=== PATIENT | male | born 1960 | race Caucasian/White ===

== ENCOUNTER 2024-12-07 21:44 | Emergency (ER) | payer OTHER ==
--- NOTE | 2024-12-07 22:38 | ER ---
Nurse's Notes [facility] Name: Aram Mcintosh Age: 64 yrs Sex: Male : 1960 Arrival Date: 12/07/2024 Time: 21:44 Bed Waiting Private MD: Diagnosis: Assessment: 12/07 22:27 Reassessment: Patient called to triage. No answer. Registration states patient left ER. cp4 22:30 Reassessment: Patient called to triage again. No answer. cp4 ED Course: 22:12 Patient arrived in ED. gm2 22:13 Bettye Be FNP-C is [facility] uzair 22:13 Max Sifuentes MD is Attending Physician. kb Administered Medications: No medications were administered Outcome: 22:38 Patient left the ED. cp4 Signatures: Bettye Be FNP-C FNP-Ckb Potter, Christina cp4 Lore Monroy gm2 Corrections: (The following items were deleted from the chart) 23:58 22:16 Reassessment: Patient called to triage no answer. Registrations states patient cp4 left. cp4
== END 2024-12-07 22:38 | disposition left against medical advice (07) ==
LOC: ER 21:44
DX: Z02.9 Encounter for administrative examinations, unspecified (principal)

== ENCOUNTER 2024-12-08 12:36 | Emergency (ER) | payer OTHER ==
[2024-12-08 13:27] LABS: Absolute Lymphocytes (CBC) 1.6 K/uL (0.7-4.9); Hematocrit 41.1 % (39.6-49.0); Hemoglobin 13.6 g/dL (13.6-17.9); MCH 32.2 pg (27.0-35.0); MCHC 33.1 g/dL (32.0-36.0); MCV 97.2 fL (80-100); MPV 9.1 fL (7.6-11.3); Nucleated RBC Absolute Count 0.0 (0-0); Nucleated Red Blood Cells % 0.0 % (0-0); RBC Red Blood Cell Count 4.23 M/uL (4.33-5.43); White Blood Count 7.70 thou/uL (4.3-10.9)
[2024-12-08 13:32] LABS: PT Prothrombin Time 14.5 SECONDS (10-13.0); Protime INR 1.29
[2024-12-08 13:44] LABS: ALT/SGPT 23 U/L (16-61); AST/SGOT 22 U/L (15-37); Albumin 3.2 g/dL (3.4-5.0); Albumin/Globulin Ratio 0.9 (1.1-1.8); Alkaline Phosphatase 51 U/L (45-117); Anion Gap 8.0 mEq/L (5.0-15.0); BUN Blood Urea Nitrogen 13 mg/dL (7-18); Globulin 3.6 g/dL (2.3-3.5); Glucose Level 115 mg/dL (74-106); Magnesium 2.0 mg/dL (1.6-2.4); NT PRO-BNP 32 pg/mL (<125); Potassium 4.0 mEq/L (3.5-5.1); Troponin High Sensitivity 6.8 pg/mL (<58.9)
[2024-12-08 13:49] LABS: Bilirubin Indirect, Calculated 0.3 mg/dL (0.2-0.8)
[2024-12-08 14:38] LABS: Influenza B Ag Negative
[2024-12-08 14:39] LABS: Influenza A Ag Negative; SARS-CoV-2 Antigen Rapid Res Negative (Negative)
--- NOTE | 2024-12-08 14:50 | RAD REPORT ---
EXAM: CT Chest For Pe Angio TECHNIQUE: CT angiogram of the chest was performed following intravenous contrast administration, inc luding sagittal and coronal as well as maximum intensity projection reformats. One or more of the following dose reduction techniques were used: Automated exposure control, adjustment of the mA and k V according to patient size, and iterative reconstruction. Unless otherwise specified, incidental findings do not require dedicated imaging follow-up. INDICATION: CHEST PAIN COMPARISON: None. FINDINGS: LINES/TUBES: None. PULMONARY ARTERIES: Mildly prominent main pulmonary artery caliber. Linear filling defects, subocclus pierre in nature, within the third order branches to the right lower lobe, and third order branches to the left upper lobe lingular segment. LUNGS AND AIRWAYS: The lungs and central airways well aerated without focal abnormality. Mild periphe ral reticular opacities throughout the lungs. Calcified pleural-based left lower lobe 4 mm granuloma. PLEURA: No effusion or pneumothorax. HEART AND MEDIASTINUM: The visualized thyroid gland is normal. No mediastinal, hilar, or axillary lym phadenopathy. Heart is unremarkable. No pericardial effusion. SOFT TISSUES AND BONES: No acute osseous abnormality. No significant soft tissue finding. UPPER ABDOMEN: Unremarkable. IMPRESSION: Subocclusive emboli within right lower lobe and left lingular segment pulmonary artery branches as ab ove. Mild prominence of the main pulmonary artery caliber, may relate to ongoing portal hypertension, plea se correlate clinically. No other findings to suggest right heart strain. THIS REPORT CONTAINS FINDINGS THAT MAY BE CRITICAL TO PATIENT CARE. The findings were verbally commun icated via telephone to Milad Martinez on 12/08/2024 2:45 PM.
--- NOTE | 2024-12-08 14:59 | ER ---
Nurse's Notes [facility] Name: Aram Mcintosh Age: 64 yrs Sex: Male : 1960 Arrival Date: 12/08/2024 Time: 12:36 Bed 3 Private MD: Diagnosis: Pulmonary embolism Presentation: 12/08 12:47 Chief complaint: Patient states: Pain behind L knee and SOB that is worse than usual, ph hx of DVT and PE, stopped taking blood thinners a few months ago. Coronavirus screen: Vaccine status: Patient reports being unvaccinated. Ebola Screen: No symptoms or risks identified at this time. Initial Sepsis Screen: Does the patient meet any 2 criteria? No. Patient's initial sepsis screen is negative. Does the patient have a suspected source of infection? No. Patient's initial sepsis screen is negative. Risk Assessment: Do you want to hurt yourself or someone else? Patient reports no desire to harm self or others. Onset of symptoms was December 08, 2024. 12:47 Method Of Arrival: Ambulatory ph 12:47 Acuity: JAIME 3 ph Triage Assessment: 12:51 General: Appears in no apparent distress. comfortable, well groomed. Pain: Complains of ph pain in posterior aspect of left knee. Neuro: Level of Consciousness is awake, alert, obeys commands, Oriented to person, place, time, situation. Cardiovascular: Capillary refill < 3 seconds in bilateral fingers Patient's skin is warm and dry. Respiratory: Reports shortness of breath on exertion Airway is patent Respiratory effort is even, unlabored, Respiratory pattern is regular, symmetrical. GI: No signs and/or symptoms were reported involving the gastrointestinal system. Derm: Skin is pink, warm \T\ dry. Historical: - Allergies: 12:50 No Known Allergies; ph - Immunization history:: Adult Immunizations unknown. - Infectious Disease History:: Denies. - Social history:: Smoking status: Patient denies any tobacco usage or history of. Screenin:52 [facility] ED Fall Risk Assessment (Adult) History of falling in the last 3 months, ph including since admission No falls in past 3 months (0 pts) Confusion or Disorientation No (0 pts) Intoxicated or Sedated No (0 pts) Impaired Gait No (0 pts) Mobility Assist Device Used No (0 pt) Altered Elimination No (0 pt) Score/Fall Risk Level 0 - 2 = Low Risk Oriented to surroundings, Maintained a safe environment, Hourly rounding (assess needs \T\ fall precautionary measures) done. Abuse screen: Denies threats or abuse. Denies injuries from another. Nutritional screening: No deficits noted. Tuberculosis screening: No symptoms or risk factors identified. Assessment: 12:52 General: SEE TRIAGE ASSESSMENT. ph Vital Signs: 12:47 BP 120 / 78; Pulse 70; Resp 18; Temp 97.5; Pulse Ox 99% on R/A; ph 15:01 Weight 88.45 kg; dd2 15:12 BP 120 / 79; Pulse 72; Resp 18; Temp 97.8; Pulse Ox 96% on R/A; ph ED Course: 12:41 Patient arrived in ED. ph 12:42 Milad Martinez MD is Attending Physician. sp3 12:47 Milla Gomez, RN is Primary Nurse. ph 12:49 Triage completed. ph 12:52 Arm band placed on Patient placed in an exam room, on a stretcher. ph 12:53 Patient has correct armband on for positive identification. Bed in low position. Call ph light in reach. Side rails up X 1. Pulse ox on. NIBP on. 13:17 Initial lab(s) drawn, by me, sent to lab. EKG done, by ED staff, reviewed by Milad Martinez MD. Inserted saline lock: 22 gauge in right antecubital area, using aseptic technique. Blood collected. Flushed with 10 mL NS. 13:28 CT Chest For PE Angio In Process Unspecified. EDMS 13:44 US Extremity Venous W Compression Toby In Process Unspecified. EDMS 15:13 No provider procedures requiring assistance completed. IV discontinued, intact, ph bleeding controlled, No redness/swelling at site. Pressure dressing applied. 15:16 Provided Education on: D/C EDUCATION. dd2 Administered Medications: 15:09 Drug: Enoxaparin Sub-Q 1 mg/kg Sub-Q once Route: Sub-Q; Site: abdomen; dd2 15:17 Follow up: Response: Medication administered at discharge. dd2 Medication: 12:53 VIS not applicable for this client. ph Outcome: 14:59 Discharge ordered by . sp3 15:13 Discharged to home ambulatory, with significant other, ph 15:13 Condition: good 15:13 Discharge instructions given to patient, significant other, Instructed on discharge instructions, follow up and referral plans. medication usage, Demonstrated understanding of instructions, follow-up care, medications, Prescriptions given X 1, 15:16 Patient left the ED. ph Signatures: Dispatcher [employer] Milla Oliva, RN RN ph Milad Martinez MD MD sp3 MICHI STOKES RN RN dd2
--- NOTE | 2024-12-08 14:59 | EDPHYS ---
Physician Documentation [facility] Name: Aram Mcintosh Age: 64 yrs Sex: Male : 1960 Arrival Date: 12/08/2024 Time: 12:36 Bed 3 Private MD: ED Physician Milad Martinez HPI: 12/08 12:48 This 64 yrs old Male presents to ER via Unassigned with complaints of left leg pain and sp3 SOB. 12:48 64-year-old male with history of DVT, PE multiple, who stopped his Xarelto at the sp3 recommendation of his senior occupational therapist several months ago now presents to the ED with chief complaint left-sided popliteal pain and dyspnea on exertion. He denies any chest pain, back pain, flank pain, abdominal pain, nausea, vomiting, diarrhea, fever, known sick contacts, travel history, or any other signs or symptoms on ROS at this time.. Historical: - Allergies: 12:50 No Known Allergies; ph - Immunization history:: Adult Immunizations unknown. - Infectious Disease History:: Denies. - Social history:: Smoking status: Patient denies any tobacco usage or history of. ROS: 12:49 Constitutional: Negative for fever, chills, and weight loss, Eyes: Negative for injury, sp3 pain, redness, and discharge, ENT: Negative for injury, pain, and discharge, Neck: Negative for injury, pain, and swelling, Cardiovascular: Negative for chest pain, palpitations, and edema, Abdomen/GI: Negative for abdominal pain, nausea, vomiting, diarrhea, and constipation, Back: Negative for injury and pain, Skin: Negative for injury, rash, and discoloration, Neuro: Negative for headache, weakness, numbness, tingling, and seizure, Psych: Negative for depression, anxiety, suicide ideation, homicidal ideation, and hallucinations, Allergy/Immunology: Negative for hives, rash, and allergies, Endocrine: Negative for neck swelling, polydipsia, polyuria, polyphagia, and marked weight changes, Hematologic/Lymphatic: Negative for swollen nodes, abnormal bleeding, and unusual bruising, 12:49 All other systems are negative, Exam: 12:49 Constitutional: This is a well developed, well nourished patient who is awake, alert, sp3 and in no acute distress. Head/Face: Normocephalic, atraumatic. Eyes: Pupils equal round and reactive to light, extra-ocular motions intact. Lids and lashes normal. Conjunctiva and sclera are non-icteric and not injected. Cornea within normal limits. Periorbital areas with no swelling, redness, or edema. Neck: Trachea midline, no thyromegaly or masses palpated, and no cervical lymphadenopathy. Supple, full range of motion without nuchal rigidity, or vertebral point tenderness. No Meningismus. Chest/axilla: Normal chest wall appearance and motion. Nontender with no deformity. No lesions are appreciated. Cardiovascular: Regular rate and rhythm with a normal S1 and S2. No gallops, murmurs, or rubs. Normal PMI, no JVD. No pulse deficits. Respiratory: Lungs have equal breath sounds bilaterally, clear to auscultation and percussion. No rales, rhonchi or wheezes noted. No increased work of breathing, no retractions or nasal flaring. Abdomen/GI: Soft, non-tender, with normal bowel sounds. No distension or tympany. No guarding or rebound. No evidence of tenderness throughout. Back: No spinal tenderness. No costovertebral tenderness. Full range of motion. Skin: Warm, dry with normal turgor. Normal color with no rashes, no lesions, and no evidence of cellulitis. MS/ Extremity: Pulses equal, no cyanosis. Neurovascular intact. Full, normal range of motion. Neuro: Awake and alert, GCS 15, oriented to person, place, time, and situation. Cranial nerves II-XII grossly intact. Motor strength 5/5 in all extremities. Sensory grossly intact. Cerebellar exam normal. Normal gait. Psych: Awake, alert, with orientation to person, place and time. Behavior, mood, and affect are within normal limits. 13:15 ECG was reviewed by the Attending Physician. EKG demonstrates normal sinus rhythm at 70 sp3 bpm with normal intervals, normal QRS, normal axis, normal ST segments without evidence of acute ischemia. Vital Signs: 12:47 BP 120 / 78; Pulse 70; Resp 18; Temp 97.5; Pulse Ox 99% on R/A; ph 15:01 Weight 88.45 kg; dd2 15:12 BP 120 / 79; Pulse 72; Resp 18; Temp 97.8; Pulse Ox 96% on R/A; ph MDM: 12:42 Medical Screening Exam initiated sp3 12:50 Data reviewed: vital signs, nurses notes, lab test result(s), EKG, radiologic studies. sp3 ED course: 64-year-old male with left popliteal pain and dyspnea on exertion. Differential diagnosis includes DVT, PE, ACS, pneumonia, pleurisy, electrolyte disturbance, influenza, COVID-19, other viral illness, among others. Workup will include CT scan of the chest PE protocol, EKG, general labs, viral swabs and general supportive care. Ultrasounds also ordered bilateral lower extremities. Disposition pending workup and patient course.. 14:58 ED course: Subsegmental PE noted. We will try patient on Eliquis and discharged home sp3 after 1 dose Lovenox in the ED.. 12/08 12:47 Order name: Basic Metabolic Panel; Complete Time: 14:31 sp3 12/08 12:47 Order name: CBC with Diff; Complete Time: 14:31 sp3 12/08 12:47 Order name: LFT's; Complete Time: 14:31 sp3 12/08 12:47 Order name: Magnesium; Complete Time: 14:31 sp3 12/08 12:47 Order name: NT PRO-BNP; Complete Time: 14:31 sp3 12/08 12:47 Order name: PT-INR; Complete Time: 14:31 sp3 12/08 12:47 Order name: Troponin HS; Complete Time: 14:31 sp3 12/08 12:49 Order name: COVID-19 Ag + Flu A+B Ag; Complete Time: 14:55 sp3 12/08 12:47 Order name: CT Chest For PE Angio; Complete Time: 14:55 sp3 12/08 12:47 Order name: US Extremity Venous W Compression Toby; Complete Time: 15:06 sp3 12/08 12:47 Order name: Cardiac monitoring; Complete Time: 13:26 sp3 12/08 12:47 Order name: EKG - Nurse/Tech; Complete Time: 13:26 sp3 12/08 12:47 Order name: IV Saline Lock; Complete Time: 13:26 sp3 12/08 12:47 Order name: Labs collected and sent; Complete Time: 13:26 sp3 12/08 12:47 Order name: O2 Per Protocol; Complete Time: 12:53 sp3 12/08 12:47 Order name: O2 Sat Monitoring; Complete Time: 12:53 sp3 Administered Medications: 15:09 Drug: Enoxaparin Sub-Q 1 mg/kg Sub-Q once Route: Sub-Q; Site: abdomen; dd2 15:17 Follow up: Response: Medication administered at discharge. dd2 Disposition Summary: 12/08/24 14:59 Discharge Ordered Notes: Location: Home sp3 Condition: Stable sp3 Diagnosis - Pulmonary embolism sp3 Followup: sp3 - With: Private Physician - When: Upon discharge from the Emergency Department - Reason: Continuance of care Discharge Instructions: - Discharge Summary Sheet sp3 - Pulmonary Embolism sp3 Forms: - Medication Reconciliation Form sp3 - Antibiotic Education sp3 - Prescription Opioid Use sp3 - Patient Portal Instructions sp3 - Leadership Thank You Letter sp3 Prescriptions: - Eliquis DVT-PE Treat 30D Start 5 mg (74 tabs) Oral Tablet, Dose Pack - take 1 application ORAL route per package directions 10 mg twice daily for 1 sp3 week, then 5 mg twice daily; 1 blisters; Refills: 0, Product Selection Permitted Signatures: Dispatcher [employer] EDMS Milla Gomez, RN RN ph Milad Martinez MD MD sp3 MICHI STOKES RN RN dd2 Corrections: (The following items were deleted from the chart) 12:48 12:48 BASIC METABOLIC PANEL+C.LAB.BRZ ordered. EDMS EDMS 12:48 12:48 CBC+H.LAB.BRZ ordered. EDMS EDMS 12:48 12:48 HEPATIC FUNCTION+C.LAB.BRZ ordered. EDMS EDMS 12:48 12:48 MAGNESIUM+C.LAB.BRZ ordered. EDMS EDMS 12:48 12:48 PROBNP+C.LAB.BRZ ordered. EDMS EDMS 12:48 12:48 PROTIME (+INR)+COAG.LAB.BRZ ordered. EDMS EDMS 12:48 12:48 Troponin High Sensitivity+C.LAB.BRZ ordered. EDMS EDMS 12:48 12:48 Chest For PE Angio+CT.RAD.BRZ ordered. EDMS EDMS 12:48 12:48 Extrem Venous W Compression Toby+US.RAD.BRZ ordered. EDMS EDMS
--- NOTE | 2024-12-08 15:03 | RAD REPORT ---
EXAMINATION: US Extrem Venous W Compress Toby CLINICAL INDICATION: HS MAIN h/o DVT and PE;Pain Bed Name: 3 Y TECHNIQUE: Complete bilateral duplex sonography of the BILATERAL lower extremity veins was performed. The examination included compression for vein patency, color Doppler imaging and flow augmentation in response to distal compression of the distal external iliac, common femoral, femoral, popliteal, t ibial, and great and small saphenous veins. COMPARISON: No prior exam. FINDINGS: Duplex sonography testing of the veins of the BILATERAL lower extremity was performed. Color flow kiran ging shows all veins to be compressible with [id number]-[id number] color filling. Pulsatile and phasic flow is present within all lower extremity deep and superficial veins examined. IMPRESSION: There is no deep vein or superficial vein thrombosis.
[2024-12-08] MEDS ORDERED: ENOXAPARIN 100 MG/ML SYR SQ ONE (15:06)
[2024-12-08 15:33] VITALS: BP 120/78; TEMP 97.5; O2SAT 99
== END 2024-12-08 15:16 | disposition home or self-care (01) ==
LOC: ER 12:36
DX: I26.99 Other pulmonary embolism without acute cor pulmonale (principal); Z86.711 Personal history of pulmonary embolism; Z11.52 Encounter for screening for COVID-19
CPT/HCPCS: 93005; 85025; 80048; 36415; 83735; 85610; 80076; 84484; 83880; 71275; 93970; 96372; 99284; 87428; Q9967; J1650